=== PATIENT | male | born 1965 | race African-American/Black ===

== ENCOUNTER 2018-02-13 08:54 | Observation (INO) ==
[2018-02-13] MEDS ORDERED: Acetaminophen 325 MG Tablet PO PRN ×2 (11:26→11:27)
[2018-02-13] MEDS ORDERED: Bisacodyl 10 MG Supp RECTAL PRN (11:26)
[2018-02-13] MEDS ORDERED: Morphine Sulfate Inj 2 MG/ML Vial IV.PUSH PRN (11:27)
[2018-02-13] MEDS ORDERED: Naloxone Inj 0.4 MG/ML Vial IV.PUSH PRN (11:27)
[2018-02-13] MEDS ORDERED: Metoprolol Tartrate 25 MG Tablet PO SCH (12:15)
--- NOTE | 2018-02-13 13:46 | P.HP ---
History of Present Illness Primary Care Physician: No Primary Care Physician Chief Complaint: Chest pain History of Present Illness: This is a 53-year-old male with a history of hypertension. He presents to the emergency department because of chest pain. States he woke up late last night with substernal pressure radiating to his neck associated with nausea, palpitations, dizziness, diaphoresis and shortness of breath. Symptoms have been intermittent worse with exertion. Patient took aspirin prior to arrival. Denies history of CAD status post cardiac catheterization 10 years ago. Denies leg pain and leg swelling. He exercises walking 3 miles a day without any symptoms however per the past several days he has been feeling tired. In the emergency department he was found to be in new onset A. fib EKG tracing interpreted by me showing atrial fibrillation with RVR. Chest x-ray image interpreted by me with no acute cardiopulmonary disease. At this time states he is symptom-free .All other systems reviewed negative Review of Systems All other systems reviewed negative except as stated in HPI [facility] - History History Provided By: Patient - Medical History Medical History: Medical History (Last Reviewed 02/13/18 @ 14:01 by Yandel Mills MD) HTN (hypertension) - Surgical History Surgical History: Surgical History (Last Reviewed 02/13/18 @ 14:01 by Yandel Mills MD) H/O cardiac catheterization H/O hernia repair H/O splenectomy - Family History Family History: Family History (Last Updated 02/13/18 @ 14:01 by Yandel Mills MD) Other Family history of acute myocardial infarction - Tobacco History Second Hand Smoke Exposure: No Smoking Status: Former smoker - Alcohol History How Often Do You Have a Drink Containing Alcohol: Never - Substance Use History Substance History: No History of Abuse Medications and Allergies Active Medications: Active Medications Acetaminophen (Tylenol) 650 mg PO Q4H PRN PRN Reason: Temp > 100.4 Acetaminophen (Tylenol) 650 mg PO Q6H PRN PRN Reason: PAIN SCALE 1 TO 2 Hydrocodone Bitart/Acetaminophen ([place] 5/325) 1 tab PO Q4H PRN PRN Reason: PAIN SCALE 3 TO 5 Hydrocodone Bitart/Acetaminophen ([place] 7.5/325) 1 tab PO Q4H PRN PRN Reason: PAIN SCALE 6 TO 10 Al Hydroxide/Mg Hydroxide (Milk Of Magnesia Liq) 30 ml PO Q12H PRN PRN Reason: Mild Constipation Aspirin (Aspirin) 325 mg PO DAILY [facility] Bisacodyl (Dulcolax Supp) 10 mg RECTAL DAILY PRN PRN Reason: SEVERE CONSITIPATION Lactulose (Lactulose Liq) 30 ml PO DAILY PRN PRN Reason: SEVERE CONSITIPATION Metoprolol Tartrate (Lopressor) 25 mg PO BID [facility] Morphine Sulfate (Morphine Inj) 1 mg IV.PUSH Q3H PRN PRN Reason: BREAKTHROUGH PAIN Naloxone HCl (Narcan Inj) 0.4 mg IV.PUSH UNSCH PRN PRN Reason: SEE LABEL COMMENTS Nitroglycerin (Nitrostat Sl) 0.4 mg SL Q5M PRN PRN Reason: CHEST PAIN Ondansetron HCl (Zofran Inj) 4 mg IV.PUSH Q6H PRN PRN Reason: NAUSEA Senna/Docusate Sodium (Julianna-Colace) 1 tab PO BID [facility] Sennosides (Senokot) 17.2 mg PO Q12H PRN PRN Reason: Moderate Constipation Sodium Chloride (Ns Flush) 2 ml IV.FLUSH BID [facility] Sodium Chloride (Ns Flush) 2 ml IV.FLUSH UNSCH PRN PRN Reason: FLUSH AFTER USING IV ACCESS Allergies Allergy/AdvReac Type Severity Reaction Status Date / Time Penicillins Allergy Intermediate hives Verified 09/02/17 16:03 Home Medications Medication Instructions Recorded Confirmed Type No Known Home Medications 02/13/18 02/13/18 History Exam Vital signs: Blood pressure 110/70 heart rate of 100 respiratory rate 18 oxygen saturation 99 % on room air Narrative: GENERAL: Well-developed, well-nourished in no distress SKIN: Warm and dry. HEAD: Atraumatic. Normocephalic. EYES: Pupils equal and round. No scleral icterus. No injection or drainage. ENT: No nasal bleeding or discharge. Mucous membranes pink and moist. NECK: Trachea midline. No JVD. CARDIOVASCULAR: Regular rate and rhythm. RESPIRATORY: No accessory muscle use. Clear to auscultation. Breath sounds equal bilaterally. GASTROINTESTINAL: Abdomen soft, non-tender, nondistended. MUSCULOSKELETAL: Extremities without clubbing, cyanosis, or edema. No obvious deformities. NEUROLOGICAL: Awake and alert. No obvious cranial nerve deficits. Motor grossly within normal limits. Five out of 5 muscle strength in the arms and legs. Normal speech. PSYCHIATRIC: Appropriate mood and affect; insight and judgment normal. Results - Labs Labs: CBC remarkable for a white count of 6.4 hemoglobin 16.5 platelet count of 283 INR 1 CMP unremarkable BNP 131 Caprini VTE Risk Assessment Caprini VTE Risk Assessment: Moderate/High Risk (score >= 2) Caprini Risk Assessment Model: Point Value = 1 Point Value = 2 Point Value = 3 Point Value = 5 Age 41-60 Minor surgery BMI > 25 kg/m2 Swollen legs Varicose veins or History of unexplained or recurrent spontaneous Oral contraceptives or hormone replacement Sepsis (< 1 month) Serious lung disease, including pneumonia (< 1 month) Abnormal pulmonary function Acute myocardial infarction Congestive heart failure (< 1 month) History of inflammatory bowel disease Medical patient at bed rest Age 61-74 Arthroscopic surgery Major open surgery (> 45 min) Laparoscopic surgery (> 45 min) Malignancy Confined to bed (> 72 hours) Immobilizing plaster cast Central venous access Age >= 75 History of VTE Family history of VTE Factor V Leiden Prothrombin [id number] Lupus anticoagulant Anticardiolipin antibodies Elevated serum homocysteine Heparin-induced thrombocytopenia Other congenital or acquired thrombophilia Stroke (< 1 month) Elective arthroplasty Hip, pelvis, or leg fracture Acute spinal cord injury (< 1 month) Prophylaxis Regimen: Total Risk Factor Score Risk Level Prophylaxis Regimen 0-1 Low Early ambulation 2 Moderate Order ONE of the following: *Sequential Compression Device (SCD) *Heparin 5000 units SQ BID 3-4 Higher Order ONE of the following medications: *Heparin 5000 units SQ TID *Enoxaparin/Lovenox 40 mg SQ daily (WT < 150 kg, CrCl > 30 mL/min) *Enoxaparin/Lovenox 30 mg SQ daily (WT < 150 kg, CrCl > 10-29 mL/min) *Enoxaparin/Lovenox 30 mg SQ BID (WT < 150 kg, CrCl > 30 mL/min) AND/OR *Sequential Compression Device (SCD) 5 or more Highest Order ONE of the following medications: *Heparin 5000 units SQ TID (Preferred with Epidurals) *Enoxaparin/Lovenox 40 mg SQ daily (WT < 150 kg, CrCl > 30 mL/min) *Enoxaparin/Lovenox 30 mg SQ daily (WT < 150 kg, CrCl > 10-29 mL/min) *Enoxaparin/Lovenox 30 mg SQ BID (WT < 150 kg, CrCl > 30 mL/min) AND *Sequential Compression Device (SCD) Assessment and Plan - Plan This is a 53-year-old male with a history of hypertension. He presents with substernal pressure radiating to his neck associated with nausea, palpitations, dizziness, diaphoresis and shortness of breath. Symptoms have been intermittent worse with exertion. Has new onset A. fib on EKG New-onset atrial fibrillation. Chads score of 1. Currently rate controlled continue Lopressor heparin drip and aspirin. Obtain 2D echo and d-dimer. May need CTA or VQ scan Chest pain. Trend cardiac enzymes. Continue aspirin and Lopressor as above. Lortab and IV morphine as needed. If patient rules out for [place] with proceed with stress test DVT prophylaxis with SCD and heparin Discharge Planning: pt
[2018-02-13 15:25] LABS: Troponin I 0.02 ng/mL (0.02-0.05)
[2018-02-13 15:31] LABS: Thyroid Stimulating Hormone 3.03 uIU/mL (0.358-3.740)
[2018-02-13 18:17] LABS: Creatine Kinase 223 U/L (39-308)
[2018-02-13 19:49] LABS: Amphetamine Screen,Urine Neg (Neg); Barbiturate Screen,Urine Neg (Neg); Cannabinoid Screen,Urine Neg (Neg); Cocaine Screen,Urine Neg (Neg)
[2018-02-13 20:02] LABS: Opiate Screen,Urine Neg (Neg)
[2018-02-14] MEDS: Senna/Docusate Sodium 8.6/50 MG Tablet PO SCH ×2 (02:02→10:07)
[2018-02-14] MEDS ORDERED: Heparin Drip 25,000 UNIT/250 ML BAG IV.CONT PRN (03:10)
[2018-02-14 04:12] VITALS: RESP 18
[2018-02-14 06:03] LABS: Hematocrit 51.4 % (39.0-51.0); Hemoglobin 16.9 gm/dL (13.0-17.0); Mean Corpuscular HGB Conc 32.8 % (32.0-36.0); Mean Corpuscular Hemoglobin 30.5 pg (27.0-34.0); Mean Platelet Volume 10.3 fL (7.0-11.0); Platelet Count 242 th/mm3 (150-450); Red Blood Count 5.53 mil/mm3 (4.50-5.90); White Blood Count 7.2 th/mm3 (4.0-11.0)
[2018-02-14] MEDS ORDERED: Aspirin 325 MG Tablet PO SCH (09:00)
--- NOTE | 2018-02-14 09:24 | P.PN ---
Subjective Interval history: Follow-up A. fib. Telemetry shows CVR. Occasional palpitations. No chest pain. Awaiting stress test. Physical Exam Vital signs: Vital Signs 02/13/18 12:00 02/13/18 16:00 02/13/18 20:00 Temperature 96.1 F L 97.7 F 98 F Pulse Rate 65 73 87 Respiratory Rate 20 20 17 Blood Pressure 134/82 125/88 102/73 Pulse Oximetry 100 99 18 L 02/13/18 21:40 02/14/18 00:00 02/14/18 04:00 Temperature 97.1 F L 96.7 F L Pulse Rate 85 87 Respiratory Rate 18 Blood Pressure 122/80 111/72 Pulse Oximetry 97 18 L 97 02/14/18 08:14 02/14/18 08:30 Temperature 97.3 F L Pulse Rate 85 Respiratory Rate 18 Blood Pressure 123/92 H Pulse Oximetry 97 100 Intake & Output 02/13/18 02/14/18 02/14/18 18:59 06:59 18:59 Intake Total 550 / 550 Output Total 350 / 350 Balance 550 / 550 -350 / -350 Weight 111.9 kg Intake: Oral 550 / 550 Output: Urine 350 / 350 Other: # Voids 2 Weight On Admission 109 kg Narrative: GENERAL: Well-developed, well-nourished in no distress SKIN: Warm and dry. CARDIOVASCULAR: Irregularly irregular RESPIRATORY: No accessory muscle use. Clear to auscultation. Breath sounds equal bilaterally. GASTROINTESTINAL: Abdomen soft, non-tender, nondistended. MUSCULOSKELETAL: Extremities without clubbing, cyanosis, or edema. No obvious deformities. NEUROLOGICAL: Awake and alert. No obvious cranial nerve deficits. Motor grossly within normal limits. Five out of 5 muscle strength in the arms and legs. Normal speech. PSYCHIATRIC: Appropriate mood and affect; insight and judgment normal. Results - Labs CBC & Chem 7: 02/14/18 05:09 Laboratory Results - last 24 hr 02/13/18 02/13/18 02/13/18 14:45 14:45 17:45 WBC RBC Hgb Hct MCV MCH MCHC RDW Plt Count MPV APTT D-Dimer Quant (PE/DVT) 0.43 Total Creatine Kinase 217 223 Troponin I 0.02 Less than 0.02 L TSH 3.030 Urine Opiates Screen Ur Barbiturates Screen Ur Amphetamines Screen U Benzodiazepines Scrn Urine Cocaine Screen U Cannabinoids Screen 02/13/18 02/14/18 02/14/18 19:35 02:29 05:09 WBC 7.2 RBC 5.53 Hgb 16.9 Hct 51.4 H MCV 93.0 MCH 30.5 MCHC 32.8 RDW 13.0 Plt Count 242 MPV 10.3 APTT 32.2 H D D-Dimer Quant (PE/DVT) Total Creatine Kinase Troponin I TSH Urine Opiates Screen Neg Ur Barbiturates Screen Neg Ur Amphetamines Screen Neg U Benzodiazepines Scrn Neg Urine Cocaine Screen Neg U Cannabinoids Screen Neg - Procedures none Assessment and Plan - Plan This is a 53-year-old male with a history of hypertension. He presents with substernal pressure radiating to his neck associated with nausea, palpitations, dizziness, diaphoresis and shortness of breath. Symptoms have been intermittent worse with exertion. Has new onset A. fib on EKG New-onset atrial fibrillation. Chads score of 1. Currently rate controlled. Lopressor was discontinued (not given) because of episode of bradycardia. Ct heparin drip and aspirin pending 2D echo. Negative d-dimer Chest pain. Ruled out for [place]. Continue aspirin. Stress test negative. DVT prophylaxis with SCD and heparin Discharge Planning: Discharge patient to home if echocardiogram negative Condition on discharge: Improved Regular Diet as tolerated Ad Tia activity no driving Rx written: Aspirin Follow-up with primary care physician
[2018-02-14 10:18] LABS: Activated Partial Thrombo Time 33.4 sec (24.3-30.1); INR 1.1 Ratio; Prothrombin Time 11.5 sec (9.8-11.6)
[2018-02-14 11:55] VITALS: BP 146/69; PULSE 74; TEMP 97.1; O2SAT 98
--- NOTE | 2018-02-14 17:03 | ECHRPT ---
Indication: ATRIAL FIB/FLUTTER CONCLUSIONS Normal left ventricular size. Mild concentric left ventricular hypertrophy. The left ventricular systolic function is normal with an estimated ejection fraction of 60%. No atrial level shunt is demonstrated by color flow Doppler interrogation. There is mild tricuspid valve regurgitation. The inferior vena cava was not well visualized. BP: / HR: Rhythm: Sinus MEASUREMENTS (Male / Female) Normal Values Technical Quality:Fair 2D ECHO LV Diastolic Diameter PLAX 4.1 cm 4.2 - 5.9 / 3.9 - 5.3 cm LV Systolic Diameter PLAX 3.5 cm IVS Diastolic Thickness 1.5 cm 0.6 - 1.0 / 0.6 - 0.9 cm LVPW Diastolic Thickness 1.5 cm 0.6 - 1.0 / 0.6 - 0.9 cm LV Relative Wall Thickness 0.7 RV Internal Dim ED PLAX 2.9 cm LVOT Diameter 2.3 cm Aortic Root Diameter 3.9 cm LA Systolic Diameter LX 3.6 cm 3.0 - 4.0 / 2.7 - 3.8 cm M-MODE AV Cusp Separation MM 2.2 cm DOPPLER AV Peak Velocity 99.3 cm/s AV Peak Gradient 3.9 mmHg AV Mean Gradient 3.0 mmHg AV Velocity Time Integral 20.2 cm LVOT Peak Velocity 89.5 cm/s LVOT Peak Gradient 3.2 mmHg LVOT Velocity Time Integral 15.5 cm AV Area Cont Eq vti 3.2 cm AV Area Cont Eq pk 3.7 cm Mitral E Point Velocity 43.4 cm/s Mitral A Point Velocity 43.4 cm/s Mitral E to A Ratio 1.0 LV E' Lateral Velocity 10.0 cm/s Mitral E to LV E' Lateral Ratio 4.3 LV E' Septal Velocity 6.7 cm/s Mitral E to LV E' Septal Ratio 6.4 TR Peak Velocity 205.0 cm/s TR Peak Gradient 16.8 mmHg Right Atrial Pressure 10.0 mmHg Pulmonary Artery Systolic Pressu 26.8 mmHg Right Ventricular Systolic Press 26.8 mmHg PV Peak Velocity 55.6 cm/s PV Peak Gradient 1.2 mmHg FINDINGS LEFT VENTRICLE Normal left ventricular size. Mild concentric left ventricular hypertrophy. The left ventricular systolic function is normal with an estimated ejection fraction of 60%. RIGHT VENTRICLE Normal right ventricular size and systolic function. LEFT ATRIUM The left atrial size is normal. RIGHT ATRIUM The right atrial size is normal. ATRIAL SEPTUM No atrial level shunt is demonstrated by color flow Doppler interrogation. AORTA The aortic root and proximal ascending aorta are normal in size on limited imaging. MITRAL VALVE Structurally normal mitral valve. No mitral valve stenosis or regurgitation. AORTIC VALVE Trileaflet aortic valve. No aortic valve stenosis or regurgitation. TRICUSPID VALVE There is mild tricuspid valve regurgitation. PULMONARY VALVE No pulmonary valve regurgitation or stenosis. VESSELS The inferior vena cava was not well visualized. PERICARDIUM No pericardial effusion. Sb Cole MD (Electronically Signed) Final Date:14 February 2018 17:02
--- NOTE | 2018-02-22 09:00 | TR ---
Date Performed: 02/14/2018 Time Performed: 12:20:19 DOCTOR: Reta Liu DRUG LIST: CLINICAL HISTORY: CHEST PAIN REASON FOR TEST: Angina REASON FOR ENDING: Completed Protocol OBSERVATION: Chest Pain: None CONCLUSION: Patient tolerated MAIKEL protocol with Total Exercise Time=8:01 Maximum EE=593 % Max HR Achieved=88.0%. Testing stopped secondary to goals acheived. During peak exercise, patient was asy mtomatic. flat usloping st segments, no significant ST depressions, HR and BP appropriate response to exercise,Recovery period, HR and BP returned to baseline...No ischemia COMMENTS: no ischemia
== END 2018-02-14 18:17 | disposition home or self-care (01) ==
LOC: PH3 08:54 → NEDDLT 08:54
PROVIDERS: ADMIT Internal Medicine; ATTEND Internal Medicine